=== PATIENT | male | born 1965 | race African-American/Black ===

== ENCOUNTER 2023-04-11 19:07 | Inpatient (IN) | payer BC, OTHER ==
[~2023-04-11] VITALS: Ht 193 cm; Wt 118.8 kg
[2023-04-11 20:34] LABS: BASOPHILS % 0.3 % (0.0-2.0); EOSINOPHILS % 0.3 % (0.0-5.0); HEMATOCRIT. 39.4 % (42.0-52.0); HEMOGLOBIN. 13.2 g/dL (14.0-18.0); LYMPHOCYTES % 24.3 % (20.0-50.0); MEAN CORPUSCULAR HGB CONC 33.4 g/dL (31.0-37.0); MEAN CORPUSCULAR VOLUME 86.7 fL (80.0-94.0); MEAN PLATELET VOLUME 8.3 fl (7.4-10.4); MONOCYTES % 11.6 % (2.0-8.0); NEUTROPHILS % 63.5 % (40.0-76.0); PLATELET 273 x1000/uL (130-400); RED BLOOD CELL COUNT 4.54 mill/uL (4.7-6.1); RED CELL DISTRIBUTION WIDTH 17.6 % (11.6-14.6); WHITE BLOOD COUNT 6.1 x1000/uL (4.5-11.0)
[2023-04-11 20:48] LABS: D-DIMER 0.2 mg/L FEU (<0.50); INR 0.9; PROTHROMBIN TIME 10.1 sec (9.6-11.0)
[2023-04-11 20:50] LABS: ALANINE AMINOTRANSFERASE 20 IU/L (10-49); ALBUMIN 4.5 g/dL (3.2-4.8); ASPARTATE AMINOTRANSFERASE 35 IU/L (<34); BILIRUBIN TOTAL 0.9 mg/dL (0.1-1.0); CARBON DIOXIDE 18 mEq/L (21-32); CHLORIDE 105 mEq/L (98-107); CREATININE 0.9 mg/dL (0.6-1.3); ETHANOL BLOOD 72 mg/dL (<10); GLUCOSE 79 mg/dL (70-105); POTASSIUM 3.6 mEq/L (3.5-5.1); PROTEIN TOTAL 7.4 g/dL (6.0-8.3); SODIUM 138 mEq/L (136-145); TROPONIN I HIGH SENSITIVITY 17 ng/L (3.0-53); UREA NITROGEN BLOOD 16 mg/dL (9-23)
[2023-04-11] MEDS: NITROGLYCERIN 0.4MG TABLET SL SL PRN (21:30)
[2023-04-11] MEDS: ONDANSETRON HCL 4MG/2ML INJ IV STA (21:31)
[2023-04-11] MEDS: ASPIRIN 81MG TABLET PO ONE (21:31)
[2023-04-11] MEDS: MORPHINE SULFATE 4 MG/ML CPJ (NOT FOR IM USE) IV STA (21:31)
[2023-04-11] MEDS: SODIUM CHLORIDE 0.9% 1,000 ML IV ONE (21:32)
[2023-04-12] MEDS ORDERED: NALOXONE HCL 0.4MG/ML VIAL IV PRN (00:45)
[2023-04-12] MEDS: HYDROCODONE/ACETAMINOPHEN 10/325MG TABLET PO PRN (01:34)
[2023-04-12] MEDS: ZOLPIDEM TARTRATE 5MG TABLET PO PRN (04:41)
[2023-04-12] MEDS: ASPIRIN 81MG TABLET PO SCH (08:35)
[2023-04-12] MEDS: LOSARTAN 50 MG TABLET PO SCH (08:35)
[2023-04-12] MEDS: METOPROLOL TARTRATE 50MG TABLET PO SCH (08:35)
[2023-04-12] MEDS ORDERED: ATORVASTATIN CALCIUM 40MG TABLET PO SCH ×2 (09:00→21:00)
[2023-04-12] MEDS ORDERED: AMLODIPINE 10MG TABLET PO SCH (09:00)
[2023-04-12] MEDS: AMLODIPINE 5MG TABLET PO SCH (09:25)
[2023-04-12 10:32] VITALS: BP 159/91; PULSE 74; RESP 18; TEMP 97.7
[2023-04-12 12:00] VITALS: BP 163/90; PULSE 72; RESP 20; TEMP 97.7
[2023-04-12 16:00] VITALS: BP 114/69; PULSE 82; RESP 18; TEMP 97.7
[2023-04-12 16:44] LABS: TROPONIN I HIGH SENSITIVITY 11 ng/L (3.0-53)
[2023-04-12] MEDS ORDERED: NIFE-32 MT (16:50)
[2023-04-12] MEDS ORDERED: LOSARTAN 50 MG TABLET PO SCH (17:00)
[2023-04-12 17:37] VITALS: BP 114/69; PULSE 82; TEMP 97.7; O2SAT 100
[2023-04-13] MEDS ORDERED: AMLODIPINE 10MG TABLET PO SCH (09:00)
== END 2023-04-12 18:17 | disposition home or self-care (01) | DRG 313 ==
LOC: ER 19:07 → 8WST 21:30 → EDBEDREQ 21:44
PROVIDERS: ADMIT Internal Medicine; ATTEND Internal Medicine
DX: R07.89 Other chest pain (principal); I10 Essential (primary) hypertension; F10.129 Alcohol abuse with intoxication, unspecified; Z72.0 Tobacco use
CPT/HCPCS: 36415; 71045; 80053; 80320; 83880; 84484; 85025; 85379; 93005; 93306; J2270; J2405; J7030; G0480